=== PATIENT | male | born 1935 | race American Indian/Alaskan Native ===

== ENCOUNTER 2017-11-11 01:56 | Inpatient (IN) | payer MEDICARE ==
[2017-11-11] MEDS ORDERED: PROVENTIL IH ONE (02:21)
[2017-11-11] MEDS ORDERED: ATROVENT IH ONE (02:21)
[2017-11-11] MEDS ORDERED: NACL 0.9% 1000 ML 1,000 ML IV ONE (02:21)
--- NOTE | 2017-11-11 02:27 | Emergency Department Report ---
ED General Adult HPI - General Chief complaint: Altered Mental Status Stated complaint: LATHARGIC Time Seen by Provider: 11/11/17 02:21 Source: EMS Mode of arrival: Stretcher Limitations: Altered Mental Status - History of Present Illness Initial comments: Brought by EMS from home according to patient is having altered mental status she thought his sugar was low however EMS states glucose was over 100. Patient is following commands but is otherwise nonverbal. states that he appears very improving a baseline now that she is in the room however earlier he was sitting on the couch and just went" out of it". He presents arousable with good gag reflex following commands eyes open but nonverbal. - Related Data Allergies Allergy/AdvReac Type Severity Reaction Status Date / Time No Known Allergies Allergy Verified 11/11/17 02:06 ED Review of Systems ROS: Stated complaint: LATHARGIC Other details as noted in HPI Comment: Unobtainable due to pts medical conditions ED Past Medical Hx - Past Medical History Previous Medical History?: Yes Hx CVA: Yes Hx Diabetes: Yes - Surgical History Past Surgical History?: Yes Hx Open Heart Surgery: Yes Additional Surgical History: rBKA - Social History Smoking Status: Former Smoker Substance Use Type: None ED Physical Exam - General Limitations: Altered Mental Status General appearance: other (eyes open and following commands good gag reflex) - Head Head exam: Present: atraumatic, normocephalic - Eye Eye exam: Present: PERRL - ENT ENT exam: Present: normal orophraynx - Neck Neck exam: Present: normal inspection. Absent: tenderness, meningismus - Respiratory Respiratory exam: Present: wheezes, rales, rhonchi. Absent: accessory muscle use - Cardiovascular Cardiovascular Exam: Present: regular rate. Absent: rubs - GI/Abdominal GI/Abdominal exam: Present: soft. Absent: distended, tenderness, guarding, rebound, mass, pulsatile mass - Extremities Exam Extremities exam: Absent: calf tenderness - Back Exam Back exam: Absent: CVA tenderness (L) - Neurological Exam Neurological exam: Present: other (old cva) ED Course Vital Signs 11/11/17 11/11/17 11/11/17 01:52 02:00 02:16 Temperature 97.5 F L Pulse Rate 86 85 86 Pulse Rate [ Bilateral] Respiratory 17 19 19 Rate Respiratory Rate [Bilateral ] Blood Pressure 167/66 169/70 O2 Sat by Pulse 96 96 95 Oximetry 12/18/17 12/18/17 12/18/17 02:20 02:30 02:46 Temperature Pulse Rate 84 79 Pulse Rate [ Bilateral] Respiratory 17 19 17 Rate Respiratory Rate [Bilateral ] Blood Pressure 162/85 162/85 O2 Sat by Pulse 98 96 97 Oximetry 11/11/17 11/11/17 11/11/17 03:00 03:40 03:59 Temperature Pulse Rate 79 Pulse Rate [ 85 Bilateral] Respiratory 16 Rate Respiratory 18 Rate [Bilateral ] Blood Pressure 160/77 160/77 O2 Sat by Pulse 95 93 Oximetry 11/11/17 04:00 Temperature Pulse Rate 82 Pulse Rate [ Bilateral] Respiratory 18 Rate Respiratory Rate [Bilateral ] Blood Pressure 145/67 O2 Sat by Pulse 91 Oximetry ED Medical Decision Making - Lab Data Result diagrams: 11/11/17 02:56 11/11/17 02:56 - EKG Data When compared to previous EKG there are: previous EKG unavailable Interpretation: nonspecific ST-T wave stephen 11/11/17 04:32 t wave inversion - Radiology Data Radiology results: report reviewed, image reviewed - Medical Decision Making Patient with altered mental status will need to be admitted. CT shows no acute process he does have old stroke. EKG does have some nonspecific ST changes with some lateral T-wave inversions he does have elevated troponin as well. He has evidence of mild renal failure with a GFR of 47. Chest x-ray did return with bilateral pulmonary infiltrates pneumonia versus CHF. I did discuss case with Dr. Alejandra who is covering for hospitalist service who evaluated the patient in ED for further evaluation and admit. Critical care attestation.: If time is entered above; I have spent that time in minutes in the direct care of this critically ill patient, excluding procedure time. ED Disposition Clinical Impression: Altered mental status, Pulmonary infiltrate, Elevated troponin Disposition: DC-[id number] OP ADMIT IP TO THIS HOSP Is pt being admited?: Yes Condition: Stable Referrals: ELOISE ALBERTO MD [Primary Care Provider] - 3-5 Days Time of Disposition: 04:34
--- NOTE | 2017-11-11 02:34 | XRay Report ---
FINAL REPORT EXAM: XR CHEST 1V AP HISTORY: Shortness of breath COMPARISON: None available. FINDINGS: Frontal view(s) of the chest obtained. Heart borderline enlarged. Prior median sternotomy. Hazy opacities mid to lower lungs bilaterally with small left-sided pleural effusion concerning for edema versus pneumonia. At the lateral margin left midlung there is a pleural-based triangular density measuring 5 x 2 centimeters. This could reflect area of pleural thickening. Pleural based mass is not excluded. IMPRESSION: Hazy opacities mid to lower lungs with small left-sided pleural effusion concerning for congestion versus pneumonia. Pleural based triangular-shaped lesion at the lateral margin left mid to upper lung of uncertain etiology. This could reflect area pleural thickening. Pleural based mass is not excluded.
[2017-11-11 03:08] LABS: Hematocrit 36.7 % (35.5-45.6); Hemoglobin 12.3 gm/dl (11.8-15.2); Mean Corpuscular HGB Conc 34 % (32-34); Mean Corpuscular Hemoglobin 30 pg (28-32); Mean Corpuscular Volume 91 fl (84-94); Platelet Count 226 K/mm3 (140-440); Red Blood Count 4.05 M/mm3 (3.65-5.03); Red Cell Distribution Width 15.2 % (13.2-15.2); White Blood Count 9.7 K/mm3 (4.5-11.0)
--- NOTE | 2017-11-11 03:27 | Cat Scan Report ---
FINAL REPORT EXAM: CT HEAD/BRAIN WO CON HISTORY: ams COMPARISON: None available. TECHNIQUE: Axial images obtained skull base through vertex. FINDINGS: No acute intracranial hemorrhage, midline shift or pathologic extra axial fluid collection. Age related volume loss with compensatory dilatation of the ventricular system and chronic small vessel ischemic disease. Chronic appearing lacunar infarct of the left thalamus measuring 9 x 10 millimeters. Chronic appearing lacunar infarct of the right thalamus measuring 8 millimeters. Subacute to chronic appearing infarct at the medial margin of the left parietal lobe measuring 2.7 x 2.6 centimeters (series 2, image 29). Remote infarct of the inferior right cerebellum measuring 6 x 6 millimeters. Low attenuation within the anterior left cerebellum concerning for subacute to chronic infarct (series 2, image 13). This area measures 2.3 x 1.8 centimeters in axial dimension. Otherwise, esparza-white differentiation preserved. Calvarium grossly intact. Prior cataract surgery. Small to moderate air-fluid level left maxillary sinus. Small to moderate amount of fluid within the mastoid air cells. IMPRESSION: No acute intracranial hemorrhage or evidence of acute transcortical infarct. There are subacute to chronic appearing infarcts of the left parietal lobe and left cerebellum. Chronic appearing lacunar infarcts bilateral thalami. Mild to moderate volume loss and moderately advanced chronic small vessel ischemic disease. Chronic appearing right cerebellar infarct. Findings concerning for the acute left maxillary sinusitis. Small to moderate amount of fluid in the mastoid air cells. If clinical concern for acute intracranial process remains, MRI would be suggested for further evaluation.
[2017-11-11 03:53] LABS: Calcium 7.9 mg/dL (8.4-10.2); Chloride 101.9 mmol/L (98-107); Potassium 4.6 mmol/L (3.6-5.0)
--- NOTE | 2017-11-11 04:40 | History and Physical Report ---
History of Present Illness Date of examination: 11/11/17 Date of admission: 11/11/17 Chief complaint: AMS History of present illness: This is an 82-year-old male with significant past medical history of hypertension, CVA August 2016, CAD/GA 2007, diabetes mellitus type 2, peripheral vascular disease, s/p right BKA who presents to the emergency department with altered mentation. Patient is accompanied by his who gives all the history. Patient follows simple commands but appears lethargic with very minimal verbal response. The patient's 's reports that he has been hyperresponsive since Saturday morning. Patient has had a poor appetite and generalized weakness. The reports no lateralizing signs or symptoms or focal weakness. Patient reports that he was at his baseline yesterday, such as conversing with friends on the telephone. No reports of headache or visual disturbances. No reports of chest pain or shortness of breath. No fever or chills. No cough or cold-like symptoms. Patient's also reports approximately 30 pound weight loss over the past 6 months. Past History Past Medical History: acute GA, diabetes, hypertension, stroke Past Surgical History: Other (Right BKA) Social history: smoking (former smoker) Family history: no significant family history Medications and Allergies Allergies Allergy/AdvReac Type Severity Reaction Status Date / Time No Known Allergies Allergy Verified 11/11/17 02:06 Active Meds: Active Medications Sodium Chloride (Nacl 0.9% 1000 Ml) 1,000 mls @ 125 mls/hr IV ONCE ONE Stop: 11/11/17 10:20 Last Admin: 11/11/17 03:58 Dose: 125 mls/hr Review of Systems All systems: negative Exam - Constitutional Vitals: Temp Pulse Resp BP Pulse Ox 97.5 F L 82 18 145/67 91 11/11/17 02:00 11/11/17 04:00 11/11/17 04:00 11/11/17 04:00 11/11/17 04:00 General appearance: Present: no acute distress, cachectic - EENT Eyes: Present: PERRL ENT: hearing intact, clear oral mucosa - Neck Neck: Present: supple, normal ROM - Respiratory Respiratory effort: normal Respiratory: bilateral: CTA - Cardiovascular Heart Sounds: Present: S1 & S2. Absent: rub, click - Extremities Extremities: pulses symmetrical, No edema Peripheral Pulses: within normal limits - Abdominal General gastrointestinal: Present: soft, non-tender, non-distended, normal bowel sounds Male genitourinary: Present: normal - Integumentary Integumentary: Present: clear, warm, dry - Musculoskeletal Musculoskeletal: gait normal, strength equal bilaterally - Psychiatric Psychiatric: appropriate mood/affect, intact judgment & insight - Neurologic Neurologic: CNII-XII intact, moves all extremities Results - Labs CBC & Chem 7: 11/11/17 02:56 11/11/17 02:56 Labs: Laboratory Last Values WBC 9.7 K/mm3 (4.5-11.0) 11/11/17 02:56 RBC 4.05 M/mm3 (3.65-5.03) 11/11/17 02:56 Hgb 12.3 gm/dl (11.8-15.2) 11/11/17 02:56 Hct 36.7 % (35.5-45.6) 11/11/17 02:56 MCV 91 fl (84-94) 11/11/17 02:56 MCH 30 pg (28-32) 11/11/17 02:56 MCHC 34 % (32-34) 11/11/17 02:56 RDW 15.2 % (13.2-15.2) 11/11/17 02:56 Plt Count 226 K/mm3 (140-440) 11/11/17 02:56 Seg Neutrophils % [employer] 11/11/17 02:56 Sodium 142 mmol/L (137-145) 11/11/17 02:56 Potassium 4.6 mmol/L (3.6-5.0) 11/11/17 02:56 Chloride 101.9 mmol/L (98-107) 11/11/17 02:56 Carbon Dioxide 23 mmol/L (22-30) 11/11/17 02:56 Anion Gap 22 mmol/L 11/11/17 02:56 BUN 44 mg/dL (9-20) H 11/11/17 02:56 Creatinine 1.7 mg/dL (0.8-1.5) H 11/11/17 02:56 Estimated GFR 47 ml/min 11/11/17 02:56 BUN/Creatinine Ratio 26 % 11/11/17 02:56 Glucose 131 mg/dL (75-100) H 11/11/17 02:56 Calcium 7.9 mg/dL (8.4-10.2) L 11/11/17 02:56 Troponin T 0.047 ng/mL (0.00-0.029) H 11/11/17 02:56 Assessment and Plan Assessment and plan: Toxic metabolic encephalopathy. Etiology likely secondary to pneumonia and renal insufficiency. We will treat underlying causes. CT scan of the head is negative. Consider MRI/MRA to rule out CVA. Bilateral pneumonia. Patient will be placed on pneumonia pathway and started on IV antibiotics. Acute renal failure. Patient may have acute on CKD. We do not have a baseline creatinine to compare. Start IV fluid hydration and monitor BMP. Check renal ultrasound. Elevated troponin. Etiology may be secondary to renal insufficiency. No reports of chest pain. Check echocardiogram. Diabetes mellitus type 2. Accu-Cheks and sliding scale insulin. 1800 ADA diet. Hypertension. Resume antihypertensive medications. Severe protein calorie malnutrition. Nutritional consult. Cachexia.
[2017-11-11] MEDS ORDERED: MILK OF MAGNESIA PO PRN (04:48)
[2017-11-11] MEDS ORDERED: ZOFRAN IV PRN (04:48)
[2017-11-11] MEDS ORDERED: D50W (25GM) Syringe IV PRN (04:48)
[2017-11-11] MEDS ORDERED: DULCOLAX PR PRN (04:48)
[2017-11-11] MEDS ORDERED: NITROSTAT SL ONE ×2 (05:31→06:03)
[2017-11-11] MEDS ORDERED: BABY ASPIRIN PO ONE (05:31)
--- NOTE | 2017-11-11 05:41 | Ultrasound Report ---
FINAL REPORT EXAM: US RENAL BILAT HISTORY: ARF COMPARISONS: Chest radiograph of the same date FINDINGS: Grayscale and color Doppler ultrasound of the kidneys and bladder Projecting prostatic mass effect on the urinary bladder base. The right kidney measures 9.6 cm in length and contains several nonobstructive collecting system echogenic shadowing foci measuring up to 11 millimeters. No hydronephrosis. No abdominal ascites or free fluid in Morison's pouch. A sub centimeter interpolar right renal cyst is noted. The left kidney measures up to 8.5 cm in length and is without hydronephrosis or echogenic shadowing foci to suggest nephrolithiasis. It interpolar left renal cyst measures up to 3 cm. Partially imaged left pleural effusion. The spleen is sonographically unremarkable. IMPRESSION: No hydronephrosis. The prostate projects into the base of the urinary bladder. Posteriorly imaged left pleural effusion.
[2017-11-11] MEDS ORDERED: BABY ASPIRIN ONE (06:03)
[2017-11-11 06:04] LABS: Basophils % (Manual) 0 % (0.0-1.8); Blastocytes % (Manual) 0 %; Eosinophils % (Manual) 0 % (0.0-4.3)
[2017-11-11 06:06] LABS: Anisocytosis Few; Diff Status Complete; Hypersegmented Neutrophils Few
[2017-11-11 06:24] LABS: Bilirubin,Urine NEG (Negative); Ketones,Urine NEG (Negative)
[2017-11-11 06:25] LABS: Blood,Urine NEG (Negative); Leukocyte Esterase,Urine NEG (Negative); Mucus,Urine FEW /HPF; Nitrite,Urine NEG (Negative)
[2017-11-11] MEDS ORDERED: ROCEPHIN/NS 1 GM/50 ML 1 GM/50 ML BAG IV SCH (10:00)
[2017-11-11] MEDS ORDERED: ceFAZolin 1 GM in NACL 0.9% 20 ML IV SCH (10:00)
[2017-11-11] MEDS: ZITHROMAX 500 MG in NACL 0.9% 250ML 250 ML IV SCH (10:57)
[2017-11-11] MEDS: ROCEPHIN 1 GM in NACL 0.9% 20 ML IV SCH (10:58)
[2017-11-11] MEDS: LOVENOX SUB-Q SCH (10:58)
--- NOTE | 2017-11-11 13:24 | Progress Note ---
<MYRIAM PARMAR - Last Filed: 11/11/17 21:26> Assessment and Plan Assessment and plan: I saw and evaluated the patient. I agree with the findings and the plan of care as documented in the Nurse Practitioner's~note, with the following corrections and additions. will obatin MRA without contrast as pt has acute renal insufficiency and will avoid contrast Hospitalist Physical - Constitutional Vitals: Temp Pulse Resp BP Pulse Ox 98.1 F 89 4 L 128/86 97 11/11/17 19:37 11/11/17 19:37 11/11/17 20:30 11/11/17 19:37 11/11/17 19:37 Results - Labs CBC & Chem 7: 11/11/17 02:56 11/11/17 02:56 Labs: Laboratory Last Values WBC 9.7 K/mm3 (4.5-11.0) 11/11/17 02:56 RBC 4.05 M/mm3 (3.65-5.03) 11/11/17 02:56 Hgb 12.3 gm/dl (11.8-15.2) 11/11/17 02:56 Hct 36.7 % (35.5-45.6) 11/11/17 02:56 MCV 91 fl (84-94) 11/11/17 02:56 MCH 30 pg (28-32) 11/11/17 02:56 MCHC 34 % (32-34) 11/11/17 02:56 RDW 15.2 % (13.2-15.2) 11/11/17 02:56 Plt Count 226 K/mm3 (140-440) 11/11/17 02:56 Add Manual Diff Complete 11/11/17 02:56 Total Counted 100 11/11/17 02:56 Seg Neutrophils % Estimator Binding 11/11/17 02:56 Seg Neuts % (Manual) 82.0 % (40.0-70.0) H 11/11/17 02:56 Band Neutrophils % 9.0 % 11/11/17 02:56 Lymphocytes % (Manual) 6.0 % (13.4-35.0) L 11/11/17 02:56 Reactive Lymphs % (Man) 0 % 11/11/17 02:56 Monocytes % (Manual) 3.0 % (0.0-7.3) 11/11/17 02:56 Eosinophils % (Manual) 0 % (0.0-4.3) 11/11/17 02:56 Basophils % (Manual) 0 % (0.0-1.8) 11/11/17 02:56 Metamyelocytes % 0 % 11/11/17 02:56 Myelocytes % 0 % 11/11/17 02:56 Promyelocytes % 0 % 11/11/17 02:56 Blast Cells % 0 % 11/11/17 02:56 Nucleated RBC % Not Reportable 11/11/17 02:56 Seg Neutrophils # Man 8.0 K/mm3 (1.8-7.7) H 11/11/17 02:56 Band Neutrophils # 0.9 K/mm3 11/11/17 02:56 Lymphocytes # (Manual) 0.6 K/mm3 (1.2-5.4) L 11/11/17 02:56 Abs React Lymphs (Man) 0.0 K/mm3 11/11/17 02:56 Monocytes # (Manual) 0.3 K/mm3 (0.0-0.8) 11/11/17 02:56 Eosinophils # (Manual) 0.0 K/mm3 (0.0-0.4) 11/11/17 02:56 Basophils # (Manual) 0.0 K/mm3 (0.0-0.1) 11/11/17 02:56 Metamyelocytes # 0.0 K/mm3 11/11/17 02:56 Myelocytes # 0.0 K/mm3 11/11/17 02:56 Promyelocytes # 0.0 K/mm3 11/11/17 02:56 Blast Cells # 0.0 K/mm3 11/11/17 02:56 WBC Morphology Not Reportable 11/11/17 02:56 Hypersegmented Neuts Few 11/11/17 02:56 Hyposegmented Neuts Not Reportable 11/11/17 02:56 Hypogranular Neuts Not Reportable 11/11/17 02:56 Smudge Cells Not Reportable 11/11/17 02:56 Toxic Granulation Not Reportable 11/11/17 02:56 Toxic Vacuolation Not Reportable 11/11/17 02:56 Dohle Bodies Not Reportable 11/11/17 02:56 Pelger-Huet Anomaly Not Reportable 11/11/17 02:56 Shona Rods Not Reportable 11/11/17 02:56 Platelet Estimate Appears normal 11/11/17 02:56 Clumped Platelets Not Reportable 11/11/17 02:56 Plt Clumps, EDTA Not Reportable 11/11/17 02:56 Large Platelets Not Reportable 11/11/17 02:56 Giant Platelets Not Reportable 11/11/17 02:56 Platelet Satelliting Not Reportable 11/11/17 02:56 Plt Morphology Comment Not Reportable 11/11/17 02:56 RBC Morphology Not Reportable 11/11/17 02:56 Dimorphic RBCs Not Reportable 11/11/17 02:56 Polychromasia Not Reportable 11/11/17 02:56 Hypochromasia Not Reportable 11/11/17 02:56 Poikilocytosis Not Reportable 11/11/17 02:56 Anisocytosis Few 11/11/17 02:56 Microcytosis Not Reportable 11/11/17 02:56 Macrocytosis Not Reportable 11/11/17 02:56 Spherocytes Not Reportable 11/11/17 02:56 Pappenheimer Bodies Not Reportable 11/11/17 02:56 Sickle Cells Not Reportable 11/11/17 02:56 Target Cells Not Reportable 11/11/17 02:56 Tear Drop Cells Not Reportable 11/11/17 02:56 Ovalocytes Not Reportable 11/11/17 02:56 Helmet Cells Not Reportable 11/11/17 02:56 Flanagan-[place] Bodies Not Reportable 11/11/17 02:56 [place] Rings Not Reportable 11/11/17 02:56 [place] Cells Not Reportable 11/11/17 02:56 Bite Cells Not Reportable 11/11/17 02:56 Crenated Cell Not Reportable 11/11/17 02:56 Elliptocytes Not Reportable 11/11/17 02:56 Acanthocytes (Spur) Not Reportable 11/11/17 02:56 Rouleaux Not Reportable 11/11/17 02:56 Hemoglobin C Crystals Not Reportable 11/11/17 02:56 Schistocytes Not Reportable 11/11/17 02:56 Malaria parasites Not Reportable 11/11/17 02:56 Mike Bodies Not Reportable 11/11/17 02:56 Hem Pathologist Commnt No 11/11/17 02:56 Sodium 142 mmol/L (137-145) 11/11/17 02:56 Potassium 4.6 mmol/L (3.6-5.0) 11/11/17 02:56 Chloride 101.9 mmol/L (98-107) 11/11/17 02:56 Carbon Dioxide 23 mmol/L (22-30) 11/11/17 02:56 Anion Gap 22 mmol/L 11/11/17 02:56 BUN 44 mg/dL (9-20) H 11/11/17 02:56 Creatinine 1.7 mg/dL (0.8-1.5) H 11/11/17 02:56 Estimated GFR 47 ml/min 11/11/17 02:56 BUN/Creatinine Ratio 26 % 11/11/17 02:56 Glucose 131 mg/dL (75-100) H 11/11/17 02:56 POC Glucose 177 (70-105) H 11/11/17 11:48 Calcium 7.9 mg/dL (8.4-10.2) L 11/11/17 02:56 Troponin T 0.047 ng/mL (0.00-0.029) H 11/11/17 02:56 NT-Pro-B Natriuret Pep 9544 pg/mL (0-900) H 11/11/17 02:56 Triglycerides 64 mg/dL (2-149) 11/11/17 02:56 Cholesterol 101 mg/dL (50-199) 11/11/17 02:56 LDL Cholesterol Direct 48 mg/dL (50-130) L 11/11/17 02:56 HDL Cholesterol 41 mg/dL (40-59) 11/11/17 02:56 Cholesterol/HDL Ratio 2.46 % 11/11/17 02:56 Urine Color Loni (Yellow) 11/11/17 05:50 Urine Turbidity Clear (Clear) 11/11/17 05:50 Urine pH 5.0 (5.0-7.0) 11/11/17 05:50 Ur Specific [place]yman 1.017 (1.003-1.030) 11/11/17 05:50 Urine Protein 30 mg/dl mg/dL (Negative) 11/11/17 05:50 Urine Glucose (UA) Neg mg/dL (Negative) 11/11/17 05:50 Urine Ketones Neg mg/dL (Negative) 11/11/17 05:50 Urine Blood Neg (Negative) 11/11/17 05:50 Urine Nitrite Neg (Negative) 11/11/17 05:50 Urine Bilirubin Neg (Negative) 11/11/17 05:50 Urine Urobilinogen 4.0 mg/dL (<2.0) 11/11/17 05:50 Ur Leukocyte Esterase Neg (Negative) 11/11/17 05:50 Urine WBC (Auto) 1.0 /HPF (0.0-6.0) 11/11/17 05:50 Urine RBC (Auto) 2.0 /HPF (0.0-6.0) 11/11/17 05:50 Hyaline Casts 1 /LPF 11/11/17 05:50 Urine Mucus Few /HPF 11/11/17 05:50 <ZAKIYA KAUFMAN - Last Filed: 11/13/17 16:07> Assessment and Plan Assessment and plan: This is an 82-year-old male with significant past medical history of hypertension, CVA August 2016, CAD/[place] 2007, diabetes mellitus type 2, peripheral vascular disease, s/p right BKA who presents to the emergency department with altered mentation. Patient is accompanied by his who gives all the history. Patient follows simple commands but appears lethargic with very minimal verbal response. The patient's 's reports that he has been hyperresponsive since Saturday morning. Patient has had a poor appetite and generalized weakness. The reports no lateralizing signs or symptoms or focal weakness. Patient reports that he was at his baseline yesterday, such as conversing with friends on the telephone. No reports of headache or visual disturbances. No reports of chest pain or shortness of breath. No fever or chills. No cough or cold-like symptoms. Patient's also reports approximately 30 pound weight loss over the past 6 months Toxic metabolic encephalopathy Etiology likely secondary to pneumonia and renal insufficiency We will treat underlying causes CT scan of the head is negative Consider MRI/MRA to rule out CVA Bilateral pneumonia Patient will be placed on pneumonia pathway and started on IV antibiotics. Acute renal failure Patient may have acute on CKD We do not have a baseline creatinine to compare Start IV fluid hydration and monitor BMP Renal ultrasound revealed no hydronephrosis Elevated troponin Etiology may be secondary to renal insufficiency No reports of chest pain Check electrocardiogram. Diabetes mellitus type 2 Accu-Checks and sliding scale insulin. ADA diet Hypertension Controlled on current antihypertensives Continue current regimen Severe protein calorie malnutrition Nutritional consult. Cachexia DVT prophylaxis Lovenox History Interval history: Patient seen and examined. Very lethargic and drowsy. Labs and nursing notes reviewed Hospitalist Physical - Constitutional Vitals: Temp Pulse Resp BP Pulse Ox 99.2 F 131 H 18 108/83 95 11/11/17 08:01 11/11/17 08:01 11/11/17 08:01 11/11/17 08:01 11/11/17 08:01 General appearance: Present: no acute distress, cachectic - EENT Eyes: Present: PERRL, EOM intact ENT: hearing intact, clear oral mucosa - Neck Neck: Present: supple, normal ROM - Respiratory Respiratory effort: normal Respiratory: bilateral: rales, rhonchi - Cardiovascular Rhythm: regular Heart Sounds: Present: S1 & S2 - Extremities Extremities: no ischemia, No edema (R BKA) Peripheral Pulses: within normal limits - Abdominal General gastrointestinal: soft, non-tender - Integumentary Integumentary: Present: clear, warm, dry - Psychiatric Psychiatric: other (lethargic) - Allied Health Allied health notes reviewed: nursing Results - Labs CBC & Chem 7: 11/12/17 06:38 11/12/17 06:38 Labs: Laboratory Last Values WBC 9.7 K/mm3 (4.5-11.0) 11/11/17 02:56 RBC 4.05 M/mm3 (3.65-5.03) 11/11/17 02:56 Hgb 12.3 gm/dl (11.8-15.2) 11/11/17 02:56 Hct 36.7 % (35.5-45.6) 11/11/17 02:56 MCV 91 fl (84-94) 11/11/17 02:56 MCH 30 pg (28-32) 11/11/17 02:56 MCHC 34 % (32-34) 11/11/17 02:56 RDW 15.2 % (13.2-15.2) 11/11/17 02:56 Plt Count 226 K/mm3 (140-440) 11/11/17 02:56 Add Manual Diff Complete 11/11/17 02:56 Total Counted 100 11/11/17 02:56 Seg Neutrophils % Estimator Binding 11/11/17 02:56 Seg Neuts % (Manual) 82.0 % (40.0-70.0) H 11/11/17 02:56 Band Neutrophils % 9.0 % 11/11/17 02:56 Lymphocytes % (Manual) 6.0 % (13.4-35.0) L 11/11/17 02:56 Reactive Lymphs % (Man) 0 % 11/11/17 02:56 Monocytes % (Manual) 3.0 % (0.0-7.3) 11/11/17 02:56 Eosinophils % (Manual) 0 % (0.0-4.3) 11/11/17 02:56 Basophils % (Manual) 0 % (0.0-1.8) 11/11/17 02:56 Metamyelocytes % 0 % 11/11/17 02:56 Myelocytes % 0 % 11/11/17 02:56 Promyelocytes % 0 % 11/11/17 02:56 Blast Cells % 0 % 11/11/17 02:56 Nucleated RBC % Not Reportable 11/11/17 02:56 Seg Neutrophils # Man 8.0 K/mm3 (1.8-7.7) H 11/11/17 02:56 Band Neutrophils # 0.9 K/mm3 11/11/17 02:56 Lymphocytes # (Manual) 0.6 K/mm3 (1.2-5.4) L 11/11/17 02:56 Abs React Lymphs (Man) 0.0 K/mm3 11/11/17 02:56 Monocytes # (Manual) 0.3 K/mm3 (0.0-0.8) 11/11/17 02:56 Eosinophils # (Manual) 0.0 K/mm3 (0.0-0.4) 11/11/17 02:56 Basophils # (Manual) 0.0 K/mm3 (0.0-0.1) 11/11/17 02:56 Metamyelocytes # 0.0 K/mm3 11/11/17 02:56 Myelocytes # 0.0 K/mm3 11/11/17 02:56 Promyelocytes # 0.0 K/mm3 11/11/17 02:56 Blast Cells # 0.0 K/mm3 11/11/17 02:56 WBC Morphology Not Reportable 11/11/17 02:56 Hypersegmented Neuts Few 11/11/17 02:56 Hyposegmented Neuts Not Reportable 11/11/17 02:56 Hypogranular Neuts Not Reportable 11/11/17 02:56 Smudge Cells Not Reportable 11/11/17 02:56 Toxic Granulation Not Reportable 11/11/17 02:56 Toxic Vacuolation Not Reportable 11/11/17 02:56 Dohle Bodies Not Reportable 11/11/17 02:56 Pelger-Huet Anomaly Not Reportable 11/11/17 02:56 Shona Rods Not Reportable 11/11/17 02:56 Platelet Estimate Appears normal 11/11/17 02:56 Clumped Platelets Not Reportable 11/11/17 02:56 Plt Clumps, EDTA Not Reportable 11/11/17 02:56 Large Platelets Not Reportable 11/11/17 02:56 Giant Platelets Not Reportable 11/11/17 02:56 Platelet Satelliting Not Reportable 11/11/17 02:56 Plt Morphology Comment Not Reportable 11/11/17 02:56 RBC Morphology Not Reportable 11/11/17 02:56 Dimorphic RBCs Not Reportable 11/11/17 02:56 Polychromasia Not Reportable 11/11/17 02:56 Hypochromasia Not Reportable 11/11/17 02:56 Poikilocytosis Not Reportable 11/11/17 02:56 Anisocytosis Few 11/11/17 02:56 Microcytosis Not Reportable 11/11/17 02:56 Macrocytosis Not Reportable 11/11/17 02:56 Spherocytes Not Reportable 11/11/17 02:56 Pappenheimer Bodies Not Reportable 11/11/17 02:56 Sickle Cells Not Reportable 11/11/17 02:56 Target Cells Not Reportable 11/11/17 02:56 Tear Drop Cells Not Reportable 11/11/17 02:56 Ovalocytes Not Reportable 11/11/17 02:56 Helmet Cells Not Reportable 11/11/17 02:56 Flanagan-[place] Bodies Not Reportable 11/11/17 02:56 [place] Rings Not Reportable 11/11/17 02:56 [place] Cells Not Reportable 11/11/17 02:56 Bite Cells Not Reportable 11/11/17 02:56 Crenated Cell Not Reportable 11/11/17 02:56 Elliptocytes Not Reportable 11/11/17 02:56 Acanthocytes (Spur) Not Reportable 11/11/17 02:56 Rouleaux Not Reportable 11/11/17 02:56 Hemoglobin C Crystals Not Reportable 11/11/17 02:56 Schistocytes Not Reportable 11/11/17 02:56 Malaria parasites Not Reportable 11/11/17 02:56 Mike Bodies Not Reportable 11/11/17 02:56 Hem Pathologist Commnt No 11/11/17 02:56 Sodium 142 mmol/L (137-145) 11/11/17 02:56 Potassium 4.6 mmol/L (3.6-5.0) 11/11/17 02:56 Chloride 101.9 mmol/L (98-107) 11/11/17 02:56 Carbon Dioxide 23 mmol/L (22-30) 11/11/17 02:56 Anion Gap 22 mmol/L 11/11/17 02:56 BUN 44 mg/dL (9-20) H 11/11/17 02:56 Creatinine 1.7 mg/dL (0.8-1.5) H 11/11/17 02:56 Estimated GFR 47 ml/min 11/11/17 02:56 BUN/Creatinine Ratio 26 % 11/11/17 02:56 Glucose 131 mg/dL (75-100) H 11/11/17 02:56 POC Glucose 149 (70-105) H 11/11/17 07:56 Calcium 7.9 mg/dL (8.4-10.2) L 11/11/17 02:56 Troponin T 0.047 ng/mL (0.00-0.029) H 11/11/17 02:56 NT-Pro-B Natriuret Pep 9544 pg/mL (0-900) H 11/11/17 02:56 Triglycerides 64 mg/dL (2-149) 11/11/17 02:56 Cholesterol 101 mg/dL (50-199) 11/11/17 02:56 LDL Cholesterol Direct 48 mg/dL (50-130) L 11/11/17 02:56 HDL Cholesterol 41 mg/dL (40-59) 11/11/17 02:56 Cholesterol/HDL Ratio 2.46 % 11/11/17 02:56 Urine Color Loni (Yellow) 11/11/17 05:50 Urine Turbidity Clear (Clear) 11/11/17 05:50 Urine pH 5.0 (5.0-7.0) 11/11/17 05:50 Ur Specific [place] 1.017 (1.003-1.030) 11/11/17 05:50 Urine Protein 30 mg/dl mg/dL (Negative) 11/11/17 05:50 Urine Glucose (UA) Neg mg/dL (Negative) 11/11/17 05:50 Urine Ketones Neg mg/dL (Negative) 11/11/17 05:50 Urine Blood Neg (Negative) 11/11/17 05:50 Urine Nitrite Neg (Negative) 11/11/17 05:50 Urine Bilirubin Neg (Negative) 11/11/17 05:50 Urine Urobilinogen 4.0 mg/dL (<2.0) 11/11/17 05:50 Ur Leukocyte Esterase Neg (Negative) 11/11/17 05:50 Urine WBC (Auto) 1.0 /HPF (0.0-6.0) 11/11/17 05:50 Urine RBC (Auto) 2.0 /HPF (0.0-6.0) 11/11/17 05:50 Hyaline Casts 1 /LPF 11/11/17 05:50 Urine Mucus Few /HPF 11/11/17 05:50 - Imaging and Cardiology Chest x-ray: report reviewed CT Scan - head: report reviewed
[2017-11-11] MEDS: NACL 0.9% 1000 ML 1,000 ML IV SCH (18:33)
[2017-11-12 07:06] LABS: Hematocrit 32.9 % (35.5-45.6); Mean Corpuscular HGB Conc 33 % (32-34); Mean Corpuscular Hemoglobin 30 pg (28-32); Mean Corpuscular Volume 89 fl (84-94); Platelet Count 218 K/mm3 (140-440); Red Blood Count 3.71 M/mm3 (3.65-5.03); Red Cell Distribution Width 15.5 % (13.2-15.2); White Blood Count 12.9 K/mm3 (4.5-11.0)
[2017-11-12 07:15] LABS: Anion Gap 22 mmol/L; BUN/Creatinine Ratio 43; Blood Urea Nitrogen 43 mg/dL (9-20); Calcium 7.6 mg/dL (8.4-10.2); Carbon Dioxide 20 mmol/L (22-30); Chloride 106.5 mmol/L (98-107); Glucose 131 mg/dL (75-100); Potassium 3.6 mmol/L (3.6-5.0); Sodium 145 mmol/L (137-145)
[2017-11-12] MEDS: LOVENOX SUB-Q SCH (09:27)
[2017-11-12] MEDS: ZITHROMAX 500 MG in NACL 0.9% 250ML 250 ML IV SCH (09:34)
[2017-11-12] MEDS: ROCEPHIN 1 GM in NACL 0.9% 20 ML IV SCH (09:34)
[2017-11-12 10:32] LABS: Basophils % (Manual) 0 % (0.0-1.8); Blastocytes % (Manual) 0 %; Eosinophils % (Manual) 0 % (0.0-4.3)
[2017-11-12 10:33] LABS: Anisocytosis Few; Diff Status Complete
[2017-11-12] MEDS: NACL 0.9% 1000 ML 1,000 ML IV SCH (11:26)
[2017-11-12] MEDS ORDERED: APRESOLINE IV PRN (11:51)
[2017-11-12] MEDS: PROCARDIA XL PO SCH (15:43)
[2017-11-12] MEDS: REMERON PO SCH (21:27)
[2017-11-12] MEDS: TYLENOL PO PRN (21:27)
[2017-11-12] MEDS ORDERED: REMERON PO SCH (22:00)
--- NOTE | 2017-11-13 08:37 | Progress Note ---
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 Patient is accompanied by his who gives all the history. Patient follows simple commands but appears lethargic with very minimal verbal response. The patient's 's reports that he has been hyperresponsive since Saturday morning. Patient has had a poor appetite and generalized weakness. The reports no lateralizing signs or symptoms or focal weakness. Patient reports that he was at his baseline yesterday, such as conversing with friends on the telephone. No reports of headache or visual disturbances. No reports of chest pain or shortness of breath. No fever or chills. No cough or cold-like symptoms. Patient's also reports approximately 30 pound weight loss over the past 6 months Toxic metabolic encephalopathy Etiology likely secondary to pneumonia and renal insufficiency We will treat underlying causes CT scan of the head is negative Brain MRI revealed chronic infarcts in the medial left occipital lobe and superior left cerebellum area, advanced volume loss and chronic white matter changes, millimetric focus of subacute ischemia in the right temporal lobe Bilateral pneumonia Patient placed on pneumonia pathway Continue IV antibiotics. Acute renal failure Patient may have acute on CKD We do not have a baseline creatinine to compare Start IV fluid hydration and monitor BMP Renal ultrasound revealed no hydronephrosis Elevated troponin No reports of chest pain Check electrocardiogram Resolved. Diabetes mellitus type 2 Accu-Checks and sliding scale insulin. ADA diet Hypertension Controlled on current antihypertensives Continue current regimen Severe protein calorie malnutrition Nutritional consult. Cachexia DVT prophylaxis Lovenox Disposition Likely discharge in the morning History Interval history: Patient seen and examined. Patient denies CP, SOB,[place]. Labs and nursing notes reviewed Hospitalist Physical - Constitutional Vitals: Temp Pulse Resp BP Pulse Ox 98.7 F 102 H 19 224/125 96 11/13/17 05:13 11/13/17 05:13 11/13/17 05:13 11/13/17 05:13 11/13/17 05:13 General appearance: Present: no acute distress, cachectic - EENT Eyes: Present: PERRL, EOM intact ENT: hearing intact, clear oral mucosa - Neck Neck: Present: supple, normal ROM - Respiratory Respiratory effort: normal Respiratory: bilateral: diminished - Cardiovascular Rhythm: regular Heart Sounds: Present: S1 & S2 - Extremities Extremities: no ischemia, No edema (R BKA) Peripheral Pulses: within normal limits - Abdominal General gastrointestinal: deferred - Integumentary Integumentary: Present: clear, warm, dry - Psychiatric Psychiatric: appropriate mood/affect, cooperative - Neurologic Neurologic: CNII-XII intact, moves all extremities - Allied Health Allied health notes reviewed: nursing Results - Labs CBC & Chem 7: 11/12/17 06:38 11/12/17 06:38 Labs: Laboratory Last Values WBC 12.9 K/mm3 (4.5-11.0) H 11/12/17 06:38 RBC 3.71 M/mm3 (3.65-5.03) 11/12/17 06:38 Hgb 11.0 gm/dl (11.8-15.2) L 11/12/17 06:38 Hct 32.9 % (35.5-45.6) L 11/12/17 06:38 MCV 89 fl (84-94) 11/12/17 06:38 MCH 30 pg (28-32) 11/12/17 06:38 MCHC 33 % (32-34) 11/12/17 06:38 RDW 15.5 % (13.2-15.2) H 11/12/17 06:38 Plt Count 218 K/mm3 (140-440) 11/12/17 06:38 Add Manual Diff Complete 11/12/17 06:38 Total Counted 100 11/12/17 06:38 Seg Neutrophils % [employer] 11/12/17 06:38 Seg Neuts % (Manual) 84.0 % (40.0-70.0) H 11/12/17 06:38 Band Neutrophils % 10.0 % 11/12/17 06:38 Lymphocytes % (Manual) 4.0 % (13.4-35.0) L 11/12/17 06:38 Reactive Lymphs % (Man) 0 % 11/12/17 06:38 Monocytes % (Manual) 2.0 % (0.0-7.3) 11/12/17 06:38 Eosinophils % (Manual) 0 % (0.0-4.3) 11/12/17 06:38 Basophils % (Manual) 0 % (0.0-1.8) 11/12/17 06:38 Metamyelocytes % 0 % 11/12/17 06:38 Myelocytes % 0 % 11/12/17 06:38 Promyelocytes % 0 % 11/12/17 06:38 Blast Cells % 0 % 11/12/17 06:38 Nucleated RBC % Not Reportable 11/12/17 06:38 Seg Neutrophils # Man 10.8 K/mm3 (1.8-7.7) H 11/12/17 06:38 Band Neutrophils # 1.3 K/mm3 11/12/17 06:38 Lymphocytes # (Manual) 0.5 K/mm3 (1.2-5.4) L 11/12/17 06:38 Abs React Lymphs (Man) 0.0 K/mm3 11/12/17 06:38 Monocytes # (Manual) 0.3 K/mm3 (0.0-0.8) 11/12/17 06:38 Eosinophils # (Manual) 0.0 K/mm3 (0.0-0.4) 11/12/17 06:38 Basophils # (Manual) 0.0 K/mm3 (0.0-0.1) 11/12/17 06:38 Metamyelocytes # 0.0 K/mm3 11/12/17 06:38 Myelocytes # 0.0 K/mm3 11/12/17 06:38 Promyelocytes # 0.0 K/mm3 11/12/17 06:38 Blast Cells # 0.0 K/mm3 11/12/17 06:38 WBC Morphology Not Reportable 11/12/17 06:38 Hypersegmented Neuts Not Reportable 11/12/17 06:38 Hyposegmented Neuts Not Reportable 11/12/17 06:38 Hypogranular Neuts Not Reportable 11/12/17 06:38 Smudge Cells Not Reportable 11/12/17 06:38 Toxic Granulation Not Reportable 11/12/17 06:38 Toxic Vacuolation Not Reportable 11/12/17 06:38 Dohle Bodies Not Reportable 11/12/17 06:38 Pelger-Huet Anomaly Not Reportable 11/12/17 06:38 Shona Rods Not Reportable 11/12/17 06:38 Platelet Estimate Not Reportable 11/12/17 06:38 Clumped Platelets Not Reportable 11/12/17 06:38 Plt Clumps, EDTA Not Reportable 11/12/17 06:38 Large Platelets Not Reportable 11/12/17 06:38 Giant Platelets Not Reportable 11/12/17 06:38 Platelet Satelliting Not Reportable 11/12/17 06:38 Plt Morphology Comment Not Reportable 11/12/17 06:38 RBC Morphology Not Reportable 11/12/17 06:38 Dimorphic RBCs Not Reportable 11/12/17 06:38 Polychromasia Not Reportable 11/12/17 06:38 Hypochromasia Not Reportable 11/12/17 06:38 Poikilocytosis Not Reportable 11/12/17 06:38 Anisocytosis Few 11/12/17 06:38 Microcytosis Not Reportable 11/12/17 06:38 Macrocytosis Not Reportable 11/12/17 06:38 Spherocytes Not Reportable 11/12/17 06:38 Pappenheimer Bodies Not Reportable 11/12/17 06:38 Sickle Cells Not Reportable 11/12/17 06:38 Target Cells Not Reportable 11/12/17 06:38 Tear Drop Cells Not Reportable 11/12/17 06:38 Ovalocytes Not Reportable 11/12/17 06:38 Helmet Cells Not Reportable 11/12/17 06:38 [place] Bodies Not Reportable 11/12/17 06:38 [place] Rings Not Reportable 11/12/17 06:38 [place] Cells Not Reportable 11/12/17 06:38 Bite Cells Not Reportable 11/12/17 06:38 Crenated Cell Not Reportable 11/12/17 06:38 Elliptocytes Not Reportable 11/12/17 06:38 Acanthocytes (Spur) Not Reportable 11/12/17 06:38 Rouleaux Not Reportable 11/12/17 06:38 Hemoglobin C Crystals Not Reportable 11/12/17 06:38 Schistocytes Not Reportable 11/12/17 06:38 Malaria parasites Not Reportable 11/12/17 06:38 Mike Bodies Not Reportable 11/12/17 06:38 Hem Pathologist Commnt No 11/12/17 06:38 Sodium 145 mmol/L (137-145) 11/12/17 06:38 Potassium 3.6 mmol/L (3.6-5.0) D 11/12/17 06:38 Chloride 106.5 mmol/L (98-107) 11/12/17 06:38 Carbon Dioxide 20 mmol/L (22-30) L 11/12/17 06:38 Anion Gap 22 mmol/L 11/12/17 06:38 BUN 43 mg/dL (9-20) H 11/12/17 06:38 Creatinine 1.0 mg/dL (0.8-1.5) 11/12/17 06:38 Estimated GFR > 60 ml/min 11/12/17 06:38 BUN/Creatinine Ratio 43 % 11/12/17 06:38 Glucose 131 mg/dL (75-100) H 11/12/17 06:38 POC Glucose 154 (70-105) H 11/12/17 21:43 Calcium 7.6 mg/dL (8.4-10.2) L 11/12/17 06:38 Troponin T 0.015 ng/mL (0.00-0.029) 11/12/17 12:13 NT-Pro-B Natriuret Pep 9544 pg/mL (0-900) H 11/11/17 02:56 Triglycerides 64 mg/dL (2-149) 11/11/17 02:56 Cholesterol 101 mg/dL (50-199) 11/11/17 02:56 LDL Cholesterol Direct 48 mg/dL (50-130) L 11/11/17 02:56 HDL Cholesterol 41 mg/dL (40-59) 11/11/17 02:56 Cholesterol/HDL Ratio 2.46 % 11/11/17 02:56 Urine Color Loni (Yellow) 11/11/17 05:50 Urine Turbidity Clear (Clear) 11/11/17 05:50 Urine pH 5.0 (5.0-7.0) 11/11/17 05:50 Ur Specific [place] 1.017 (1.003-1.030) 11/11/17 05:50 Urine Protein 30 mg/dl mg/dL (Negative) 11/11/17 05:50 Urine Glucose (UA) Neg mg/dL (Negative) 11/11/17 05:50 Urine Ketones Neg mg/dL (Negative) 11/11/17 05:50 Urine Blood Neg (Negative) 11/11/17 05:50 Urine Nitrite Neg (Negative) 11/11/17 05:50 Urine Bilirubin Neg (Negative) 11/11/17 05:50 Urine Urobilinogen 4.0 mg/dL (<2.0) 11/11/17 05:50 Ur Leukocyte Esterase Neg (Negative) 11/11/17 05:50 Urine WBC (Auto) 1.0 /HPF (0.0-6.0) 11/11/17 05:50 Urine RBC (Auto) 2.0 /HPF (0.0-6.0) 11/11/17 05:50 Hyaline Casts 1 /LPF 11/11/17 05:50 Urine Mucus Few /HPF 11/11/17 05:50 - Imaging and Cardiology MRI - head: report reviewed
--- NOTE | 2017-11-13 08:37 | Progress Note ---
Assessment and Plan Assessment and plan: This is an 82-year-old male with significant past medical history of hypertension, CVA August 2016, CAD/[place] 2007, diabetes mellitus type 2, peripheral vascular disease, s/p right BKA who presents to the emergency department with altered mentation. Patient is accompanied by his who gives all the history. Patient follows simple commands but appears lethargic with very minimal verbal response. The patient's 's reports that he has been hyperresponsive since Saturday morning. Patient has had a poor appetite and generalized weakness. The reports no lateralizing signs or symptoms or focal weakness. Patient reports that he was at his baseline yesterday, such as conversing with friends on the telephone. No reports of headache or visual disturbances. No reports of chest pain or shortness of breath. No fever or chills. No cough or cold-like symptoms. Patient's also reports approximately 30 pound weight loss over the past 6 months Toxic metabolic encephalopathy Etiology likely secondary to pneumonia and renal insufficiency We will treat underlying causes CT scan of the head is negative Consider MRI/MRA to rule out CVA Bilateral pneumonia Patient placed on pneumonia pathway Continue IV antibiotics. Acute renal failure Patient may have acute on CKD We do not have a baseline creatinine to compare Start IV fluid hydration and monitor BMP Renal ultrasound revealed no hydronephrosis Elevated troponin No reports of chest pain Check electrocardiogram Resolved. Diabetes mellitus type 2 Accu-Checks and sliding scale insulin. ADA diet Hypertension Controlled on current antihypertensives Continue current regimen Severe protein calorie malnutrition Nutritional consult. Cachexia DVT prophylaxis Lovenox History Interval history: Patient seen and examined. Patient is doing better today. Denies CP, SOB, NV. Labs and nursing notes reviewed Hospitalist Physical - Constitutional Vitals: Temp Pulse Resp BP Pulse Ox 98.7 F 102 H 19 224/125 96 11/13/17 05:13 11/13/17 05:13 11/13/17 05:13 11/13/17 05:13 11/13/17 05:13 General appearance: Present: no acute distress, cachectic - EENT Eyes: Present: PERRL, EOM intact ENT: hearing intact, clear oral mucosa - Neck Neck: Present: supple, normal ROM - Respiratory Respiratory effort: normal Respiratory: bilateral: diminished, rales - Cardiovascular Rhythm: regular Heart Sounds: Present: S1 & S2 - Extremities Extremities: no ischemia, No edema (R BKA) Peripheral Pulses: within normal limits - Abdominal General gastrointestinal: deferred, soft, non-tender - Integumentary Integumentary: Present: clear, warm, dry - Psychiatric Psychiatric: appropriate mood/affect, cooperative - Neurologic Neurologic: CNII-XII intact, moves all extremities - Allied Health Allied health notes reviewed: nursing Results - Labs CBC & Chem 7: 11/12/17 06:38 11/12/17 06:38 Labs: Laboratory Last Values WBC 12.9 K/mm3 (4.5-11.0) H 11/12/17 06:38 RBC 3.71 M/mm3 (3.65-5.03) 11/12/17 06:38 Hgb 11.0 gm/dl (11.8-15.2) L 11/12/17 06:38 Hct 32.9 % (35.5-45.6) L 11/12/17 06:38 MCV 89 fl (84-94) 11/12/17 06:38 MCH 30 pg (28-32) 11/12/17 06:38 MCHC 33 % (32-34) 11/12/17 06:38 RDW 15.5 % (13.2-15.2) H 11/12/17 06:38 Plt Count 218 K/mm3 (140-440) 11/12/17 06:38 Add Manual Diff Complete 11/12/17 06:38 Total Counted 100 11/12/17 06:38 Seg Neutrophils % Tile Layer Supervisor 11/12/17 06:38 Seg Neuts % (Manual) 84.0 % (40.0-70.0) H 11/12/17 06:38 Band Neutrophils % 10.0 % 11/12/17 06:38 Lymphocytes % (Manual) 4.0 % (13.4-35.0) L 11/12/17 06:38 Reactive Lymphs % (Man) 0 % 11/12/17 06:38 Monocytes % (Manual) 2.0 % (0.0-7.3) 11/12/17 06:38 Eosinophils % (Manual) 0 % (0.0-4.3) 11/12/17 06:38 Basophils % (Manual) 0 % (0.0-1.8) 11/12/17 06:38 Metamyelocytes % 0 % 11/12/17 06:38 Myelocytes % 0 % 11/12/17 06:38 Promyelocytes % 0 % 11/12/17 06:38 Blast Cells % 0 % 11/12/17 06:38 Nucleated RBC % Not Reportable 11/12/17 06:38 Seg Neutrophils # Man 10.8 K/mm3 (1.8-7.7) H 11/12/17 06:38 Band Neutrophils # 1.3 K/mm3 11/12/17 06:38 Lymphocytes # (Manual) 0.5 K/mm3 (1.2-5.4) L 11/12/17 06:38 Abs React Lymphs (Man) 0.0 K/mm3 11/12/17 06:38 Monocytes # (Manual) 0.3 K/mm3 (0.0-0.8) 11/12/17 06:38 Eosinophils # (Manual) 0.0 K/mm3 (0.0-0.4) 11/12/17 06:38 Basophils # (Manual) 0.0 K/mm3 (0.0-0.1) 11/12/17 06:38 Metamyelocytes # 0.0 K/mm3 11/12/17 06:38 Myelocytes # 0.0 K/mm3 11/12/17 06:38 Promyelocytes # 0.0 K/mm3 11/12/17 06:38 Blast Cells # 0.0 K/mm3 11/12/17 06:38 WBC Morphology Not Reportable 11/12/17 06:38 Hypersegmented Neuts Not Reportable 11/12/17 06:38 Hyposegmented Neuts Not Reportable 11/12/17 06:38 Hypogranular Neuts Not Reportable 11/12/17 06:38 Smudge Cells Not Reportable 11/12/17 06:38 Toxic Granulation Not Reportable 11/12/17 06:38 Toxic Vacuolation Not Reportable 11/12/17 06:38 Dohle Bodies Not Reportable 11/12/17 06:38 Pelger-Huet Anomaly Not Reportable 11/12/17 06:38 Shona Rods Not Reportable 11/12/17 06:38 Platelet Estimate Not Reportable 11/12/17 06:38 Clumped Platelets Not Reportable 11/12/17 06:38 Plt Clumps, EDTA Not Reportable 11/12/17 06:38 Large Platelets Not Reportable 11/12/17 06:38 Giant Platelets Not Reportable 11/12/17 06:38 Platelet Satelliting Not Reportable 11/12/17 06:38 Plt Morphology Comment Not Reportable 11/12/17 06:38 RBC Morphology Not Reportable 11/12/17 06:38 Dimorphic RBCs Not Reportable 11/12/17 06:38 Polychromasia Not Reportable 11/12/17 06:38 Hypochromasia Not Reportable 11/12/17 06:38 Poikilocytosis Not Reportable 11/12/17 06:38 Anisocytosis Few 11/12/17 06:38 Microcytosis Not Reportable 11/12/17 06:38 Macrocytosis Not Reportable 11/12/17 06:38 Spherocytes Not Reportable 11/12/17 06:38 Pappenheimer Bodies Not Reportable 11/12/17 06:38 Sickle Cells Not Reportable 11/12/17 06:38 Target Cells Not Reportable 11/12/17 06:38 Tear Drop Cells Not Reportable 11/12/17 06:38 Ovalocytes Not Reportable 11/12/17 06:38 Helmet Cells Not Reportable 11/12/17 06:38 Flanagan-Hoquiam Bodies Not Reportable 11/12/17 06:38 [place] Rings Not Reportable 11/12/17 06:38 D[place] Cells Not Reportable 11/12/17 06:38 Bite Cells Not Reportable 11/12/17 06:38 Crenated Cell Not Reportable 11/12/17 06:38 Elliptocytes Not Reportable 11/12/17 06:38 Acanthocytes (Spur) Not Reportable 11/12/17 06:38 Rouleaux Not Reportable 11/12/17 06:38 Hemoglobin C Crystals Not Reportable 11/12/17 06:38 Schistocytes Not Reportable 11/12/17 06:38 Malaria parasites Not Reportable 11/12/17 06:38 Mike Bodies Not Reportable 11/12/17 06:38 Hem Pathologist Commnt No 11/12/17 06:38 Sodium 145 mmol/L (137-145) 11/12/17 06:38 Potassium 3.6 mmol/L (3.6-5.0) D 11/12/17 06:38 Chloride 106.5 mmol/L (98-107) 11/12/17 06:38 Carbon Dioxide 20 mmol/L (22-30) L 11/12/17 06:38 Anion Gap 22 mmol/L 11/12/17 06:38 BUN 43 mg/dL (9-20) H 11/12/17 06:38 Creatinine 1.0 mg/dL (0.8-1.5) 11/12/17 06:38 Estimated GFR > 60 ml/min 11/12/17 06:38 BUN/Creatinine Ratio 43 % 11/12/17 06:38 Glucose 131 mg/dL (75-100) H 11/12/17 06:38 POC Glucose 154 (70-105) H 11/12/17 21:43 Calcium 7.6 mg/dL (8.4-10.2) L 11/12/17 06:38 Troponin T 0.015 ng/mL (0.00-0.029) 11/12/17 12:13 NT-Pro-B Natriuret Pep 9544 pg/mL (0-900) H 11/11/17 02:56 Triglycerides 64 mg/dL (2-149) 11/11/17 02:56 Cholesterol 101 mg/dL (50-199) 11/11/17 02:56 LDL Cholesterol Direct 48 mg/dL (50-130) L 11/11/17 02:56 HDL Cholesterol 41 mg/dL (40-59) 11/11/17 02:56 Cholesterol/HDL Ratio 2.46 % 11/11/17 02:56 Urine Color Loni (Yellow) 11/11/17 05:50 Urine Turbidity Clear (Clear) 11/11/17 05:50 Urine pH 5.0 (5.0-7.0) 11/11/17 05:50 Ur Specific [place] 1.017 (1.003-1.030) 11/11/17 05:50 Urine Protein 30 mg/dl mg/dL (Negative) 11/11/17 05:50 Urine Glucose (UA) Neg mg/dL (Negative) 11/11/17 05:50 Urine Ketones Neg mg/dL (Negative) 11/11/17 05:50 Urine Blood Neg (Negative) 11/11/17 05:50 Urine Nitrite Neg (Negative) 11/11/17 05:50 Urine Bilirubin Neg (Negative) 11/11/17 05:50 Urine Urobilinogen 4.0 mg/dL (<2.0) 11/11/17 05:50 Ur Leukocyte Esterase Neg (Negative) 11/11/17 05:50 Urine WBC (Auto) 1.0 /HPF (0.0-6.0) 11/11/17 05:50 Urine RBC (Auto) 2.0 /HPF (0.0-6.0) 11/11/17 05:50 Hyaline Casts 1 /LPF 11/11/17 05:50 Urine Mucus Few /HPF 11/11/17 05:50
[2017-11-13] MEDS ORDERED: ATIVAN IV NR (09:00)
[2017-11-13] MEDS: ROCEPHIN 1 GM in NACL 0.9% 20 ML IV SCH (09:28)
[2017-11-13] MEDS: ZITHROMAX 500 MG in NACL 0.9% 250ML 250 ML IV SCH (09:28)
[2017-11-13] MEDS: BABY ASPIRIN PO SCH (09:29)
[2017-11-13] MEDS: LOVENOX SUB-Q SCH (09:29)
[2017-11-13] MEDS: GLUCOTROL PO SCH (09:29)
[2017-11-13] MEDS: PROCARDIA XL PO SCH (09:29)
[2017-11-13] MEDS ORDERED: FOLATE PO SCH (10:00)
[2017-11-13] MEDS ORDERED: VIT B12 PO SCH (10:00)
[2017-11-13] MEDS ORDERED: INTRINSIC FACT PO SCH (10:00)
[2017-11-13] MEDS: DIOVAN PO SCH (10:54)
--- NOTE | 2017-11-13 13:38 | Magnetic Resonance Report ---
MRI OF THE BRAIN WITHOUT CONTRAST: HISTORY: Altered mental status PROCEDURE: Multiplanar, multisequence MR imaging of the brain without IV contrast was performed. FINDINGS: Advanced volume loss and nonspecific chronic white matter changes are identified. A 3 x 7 mm focus of diffusion restriction is identified in the subcortical white matter of the right temporal lobe on diffusion image 15. This is consistent with a subacute focus of ischemia. No additional areas of diffusion restriction. Chronic cortical infarct in the left medial occipital lobe is identified. 1 cm chronic infarct in the superior left cerebellum is also identified. The midline structures are central. The basal cisterns are patent. Normal ventricular size. The orbital cavities and sella turcica demonstrate no abnormality. The visualized paranasal sinuses and mastoid air cells are well aerated. IMPRESSION: Millimetric focus of subacute ischemia in the right temporal lobe. Advanced volume loss and chronic white matter changes. Chronic infarcts in the medial left occipital lobe and superior left cerebellum.
[2017-11-13] MEDS ORDERED: DAKIN'S FULL STRENGTH TP SCH (22:00)
[2017-11-13] MEDS: TYLENOL PO PRN (22:04)
[2017-11-13] MEDS: REMERON PO SCH (22:06)
[2017-11-13] MEDS: NACL 0.9% 1000 ML 1,000 ML IV SCH (22:06)
[2017-11-14] MEDS ORDERED: LASIX ONE (01:14)
[2017-11-14 01:39] LABS: ISTAT Base Excess 0; ISTAT HCO3 24.8; ISTAT PCO2 39.1 (35-45); ISTAT PH 7.411 (7.35-7.45); ISTAT PO2 42 (80-105); ISTAT SO2 78; ISTAT TCO2 26
[2017-11-14] MEDS: DUONEB *Not for PRN Use IH SCH ×4 (01:50→21:36)
--- NOTE | 2017-11-14 02:13 | XRay Report ---
FINAL REPORT EXAM: XR CHEST 1V AP HISTORY: Code met TECHNIQUE: A portable view of the chest was obtained and compared to the study of 11/11/2017. FINDINGS: The lungs are hyperinflated. There is patchy airspace disease in the lower halves of both lungs. The left lung base has improved since the previous study. There is also an area of diffuse pleural thickening along the lateral aspect of left hemithorax with rib deformities. With this related to history of trauma or neoplasia is uncertain. There are sternotomy sutures. The heart size is normal. Mild congestion cannot be excluded. The bones and soft tissues otherwise are unchanged. IMPRESSION: Extensive airspace disease in both lungs with slight improvement of left lung base. Emphysema with interstitial prominence. Underlying congestion cannot be excluded. Indeterminate area pleural thickening along the left lateral aspect of the hemithorax with rib deformities. Whether this is posttraumatic in origin or related neoplasia is uncertain.
--- NOTE | 2017-11-14 06:07 | Event Note ---
Date: 11/14/17 Code met Patient hypoxic, decreased responsiveness He is scheduled for hospice tomorrow. I spoke with the daughter she stated that she signed a DO NOT RESUSCITATE and will rescind it Obtain ABG, hold IV fluids, give Lasix, nebulizer treatment and placed on BiPAP Obtain chest x-ray cc 40 minutes
[2017-11-14] MEDS ORDERED: ZITHROMAX PO SCH (10:00)
[2017-11-14] MEDS: LOVENOX SUB-Q SCH (10:46)
[2017-11-14] MEDS: GLUCOTROL PO SCH (10:46)
[2017-11-14] MEDS: BABY ASPIRIN PO SCH (10:46)
[2017-11-14] MEDS: PROCARDIA XL PO SCH (10:49)
[2017-11-14] MEDS: DIOVAN PO SCH (10:49)
--- NOTE | 2017-11-14 13:02 | Discharge Summary ---
<ZAKIYA KAUFMAN - Last Filed: 11/29/17 16:38> Providers - Providers Date of Admission: 11/11/17 04:48 Date of discharge: 11/14/17 Attending physician: HAN DAMIAN MD 11/12/17 11:01 Consult to Wound/ET Nurse [CONS] Routine Reason For Exam: wound eval 11/12/17 14:14 Consult to Case Management [CONS] Routine Services Needed at Discharge: Other Notified:: EVA If yes, spoke with:: EVA Time called:: 13:30 Comment:: HOME HOSPICE Additional Physician Instructions: [facility] TRE[facility] Primary care physician: ELOISE ALBERTO Hospitalization Condition: Serious Pertinent studies: Chest x-ray revealed hazy opacities mid to lower lungs with small left-sided pleural effusion. Renal ultrasound was negative for hydronephrosis. Head CT revealed subacute to chronic appearing infarcts of the left parietal lobe and left cerebellum. 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 Patient is accompanied by his who gives all the history. Patient follows simple commands but appears lethargic with very minimal verbal response. The patient's 's reports that he has been hyperresponsive since Saturday morning. Patient has had a poor appetite and generalized weakness. The reports no lateralizing signs or symptoms or focal weakness. Patient reports that he was at his baseline yesterday, such as conversing with friends on the telephone. No reports of headache or visual disturbances. No reports of chest pain or shortness of breath. No fever or chills. No cough or cold-like symptoms. Patient's also reports approximately 30 pound weight loss over the past 6 months. Patient was treated for toxic metabolic encephalopathy likely secondary to pneumonia and acute renal insufficiency. Patient was treated with antibiotics, steroids, and IV fluids after which he clinically improved. Patient resumed home medications. Patient was discharged with home hospice. Discharge diagnoses Failure to thrive Complete immobility due to frailty Subacute CVA Severe malnutrition Sacral ulcer present on admission COPD with exacerbation Acute hypoxic respiratory failure Bilateral pneumonia Hypertensive Urgency Disposition: [facility] ([facility]) Time spent for discharge: 35 mins Core Measure Documentation - Palliative Care Palliative Care/ Comfort Measures: Hospice Care - Core Measures Any of the following diagnoses?: stroke - Stroke Discharge Requirements Statin for LDL = or >70 mg/dl on DC: Not Applicable Anticoag for atrial fib/atrial flutter: Not Applicable Antithrombotic for ischemic stroke: Yes Exam - Constitutional Vitals: Temp Pulse Resp BP Pulse Ox 97.7 F 66 22 76/43 99 11/14/17 11:19 11/14/17 11:19 11/14/17 11:19 11/14/17 11:19 11/14/17 11:19 General appearance: Present: no acute distress - EENT Eyes: Present: PERRL ENT: hearing intact, clear oral mucosa - Neck Neck: Present: supple - Respiratory Respiratory effort: normal, other (On BIPAP) Respiratory: bilateral: rales - Cardiovascular Rhythm: regular Heart Sounds: Present: S1 & S2 - Extremities Extremities: pulses symmetrical, No edema Extremity abnormal: other (R BKA) Peripheral Pulses: within normal limits - Abdominal General gastrointestinal: Present: soft, non-tender, non-distended, normal bowel sounds Male genitourinary: Present: deferred - Rectal Rectal Exam: deferred - Integumentary Integumentary: Present: warm, dry - Musculoskeletal Musculoskeletal: generalized weakness - Psychiatric Psychiatric: cooperative - Neurologic Neurologic: moves all extremities - Allied Health Allied health notes reviewed: nursing Plan Activity: fall precautions Weight Bearing Status: Weight Bear as Tolerated Diet: low fat, low cholesterol, low salt, diabetic Follow up with: ELOISE ALBERTO MD [Primary Care Provider] - 3-5 Days Prescriptions: Mirtazapine [Remeron] 15 mg PO QHS #30 tablet Amoxicillin/K Clav [Augmentin 500 mg] 1 tab PO Q12H #8 tablet Arformoterol Nebu [Brovana Nebu] 15 mcg IH Q12HR #60 neb Aspirin [Aspirin BABY CHEW TAB] 81 mg PO DAILY #30 tab.chew Azithromycin [Zithromax TAB] 250 mg PO QDAY #2 tablet Budesonide [Pulmicort] 0.25 mg IH Q12HR #60 nebu glipiZIDE [Glipizide] 5 mg PO DAILY #30 tablet Ipratropium/Albuterol Sulfate [DUONEB *Not for PRN Use*] 1 ampul IH Q6HRT PRN # 120 ampul.neb PRN Reason: sob methylPREDNISolone [Medrol Dose Ronald] 4 mg PO DAILY #1 pack NIFEdipine XL [Procardia Xl] 60 mg PO QDAY #30 tablet Sodium Hypochlorite [Dakin's Full Strength] 1 applic TP Q12H #1 bottle Valsartan [Diovan] 160 mg PO DAILY #30 tablet Vit B12/Intrinsic Fact/Folate [Intrinsi B69-Mdxozf Tablet] 1 each PO DAILY #30 tablet <HAN DAMIAN - Last Filed: 11/30/17 13:06> Providers - Providers Date of Admission: 11/11/17 04:48 Attending physician: HAN DAMIAN MD 11/12/17 11:01 Consult to Wound/ET Nurse [CONS] Routine Reason For Exam: wound eval 11/12/17 14:14 Consult to Case Management [CONS] Routine Services Needed at Discharge: Other Notified:: EVA If yes, spoke with:: EVA Time called:: 13:30 Comment:: HOME HOSPICE Additional Physician Instructions: [facility] EVAL [facility] TREAT Primary care physician: ELOISE ALBERTO Hospitalization Hospital course: I saw and evaluated the patient. I agree with the findings and the plan of care as documented in the Nurse Practitioner's~note Exam - Constitutional Vitals: Temp Pulse Resp BP Pulse Ox 97.7 F 71 76 H 67/35 99 11/14/17 11:19 11/14/17 17:15 11/14/17 16:45 11/14/17 17:15 11/14/17 17:15
[2017-11-14] MEDS ORDERED: ATIVAN IV ONE (17:45)
[2017-11-14] MEDS ORDERED: MORPHINE IV ONE (18:00)
[2017-11-14 21:14] VITALS: BP 67/35
[2017-11-15] MEDS: DUONEB *Not for PRN Use IH SCH (02:07)
--- NOTE | 2017-12-02 15:09 | Query- Pneumonia ---
Maribel Madison____[facility] Date: 12/02/17 Mineral Technologist/CDS: Kamranroderick / [place] Phone#:____[phone] Exercise your independent professional judgment when responding to query. Questions asked do not imply a particular answer is desired or expected. We greatly appreciate your clarification on this issue. Clinical Documentation States: 82 year old male was admitted on 11/11/17 The progress note (11/13/17) states " This is an 82-year-old male with significant past medical history of hypertension, CVA August 2016, CAD/[place] 2007 , diabetes mellitus type 2, peripheral vascular disease, s/p right BKA who presents to the emergency department with altered mentation. Bilateral pneumonia Patient placed on pneumonia pathway Continue IV antibiotics." Clinical Findings Show: Please further specify known or suspected Etiology: [ x] Aspiration Pneumonia [ ] Gram Negative Pneumonia [ ] Gram Positive Pneumonia [ ] Pseudomonas Pneumonia [ ] MRSA - related Pneumonia [ ] Viral Pneumonia [ ] Candidal Pneumonia [ ] Postoperative Pneumonia [ ] Lobar/Basilar Pneumonia [ ] Community Acquired Pneumonia [ ] Bacterial, other (Please specify organism if possible) [ ] Other: [ ] Unable to determine Present on Admission: [x ] Yes (Y) [ ] Clinically undeterminable (W) [ ] No (N) Please also document response in your Progress Notes and/or Discharge Summary and indicate if the condition was present on admission. VANESSAD
== END 2017-11-14 17:00 | disposition hospice, inpatient (51) | DRG 177 ==
LOC: ED 01:56 → 4A 04:48
PROVIDERS: ADMIT Hospitalist; ATTEND Internal Medicine
PROC: 5A09357 Assistance with Respiratory Ventilation, Less than 24 Consecutive Hours, Continuous Positive Airway Pressure (ICD-10-PCS; principal; 2017-11-14)
DX: J69.0 Pneumonitis due to inhalation of food and vomit (principal); I63.9 Cerebral infarction, unspecified; J96.01 Acute respiratory failure with hypoxia; E43 Unspecified severe protein-calorie malnutrition; G92 Toxic encephalopathy; R53.2 Functional quadriplegia; N17.9 Acute kidney failure, unspecified; J44.1 Chronic obstructive pulmonary disease with (acute) exacerbation; Z68.1 Body mass index [BMI] 19.9 or less, adult; E11.9 Type 2 diabetes mellitus without complications; L89.159 Pressure ulcer of sacral region, unspecified stage; Z66 Do not resuscitate; I16.0 Hypertensive urgency; I25.10 Atherosclerotic heart disease of native coronary artery without angina pectoris; I25.2 Old myocardial infarction; Z89.511 Acquired absence of right leg below knee; Z87.891 Personal history of nicotine dependence
CPT/HCPCS: 36415; 70450; 70551; 71010; 76770; 80048; 80061; 81001; 82803; 82962; 83880; 84484; 85007; 85025; 93005; 93010; 93306; 94640; 94660; 94760; 99285; J0456; J0690; J0696; J1650; J1940; J2060; J2270; J7030; J7050